=== PATIENT | female | born 1975 | race African-American/Black ===

== ENCOUNTER 2020-09-02 10:56 | Emergency (ER) | payer SELFPAY ==
[~2020-09-02] VITALS: Ht 170.2 cm; Wt 131.0 kg
[2020-09-02 11:02] VITALS: BP 190/95
[2020-09-02] MEDS ORDERED: TOPUD MT (12:00)
[2020-09-02] MEDS ORDERED: IBUP-2028 MT (12:00)
[2020-09-02] MEDS: TETRACAINE 0.5% OPHTH DROPS 4ML BOTHEYE ONE (12:01)
[2020-09-02] MEDS: FLUORESCEIN SODIUM 1MG/STRIP BOTHEYE ONE (12:01)
== END 2020-09-02 12:10 | disposition home or self-care (01) ==
LOC: ER 10:56
DX: S00.12XA Contusion of left eyelid and periocular area, initial encounter (principal); M25.512 Pain in left shoulder; I10 Essential (primary) hypertension; Z98.890 Other specified postprocedural states; Y04.0XXA Assault by unarmed brawl or fight, initial encounter; Y93.89 Activity, other specified; Y92.89 Other specified places as the place of occurrence of the external cause; Y99.8 Other external cause status
CPT/HCPCS: 99283